=== PATIENT | female | born 1990 | race Caucasian/White ===

== ENCOUNTER 2017-09-26 22:30 | Emergency (ER) | payer MEDICAID, OTHER ==
[~2017-09-26] VITALS: Ht 160 cm; Wt 64.0 kg
[~2017-09-26 22:30] MED LIST: FLINT2 PO; OXYC-360 PO
[2017-09-26 23:06] VITALS: BP 119/61; PULSE 74; RESP 16; TEMP 97.7; O2SAT 100
--- NOTE | 2017-09-26 23:56 | PD ---
HPI Chief Complaint: Skin Problem Time Seen by Provider: 23:31 Travel History International Travel<30 days: No Contact w/Intl Traveler<30days: No Traveled to known affect area: No History of Present Illness HPI The patient is a 27 year old female who presents to the [facility] emergency department with a history of right wrist pain that she reports began approximately 1 week ago. Patient reports that at that time she went to the [place] emergency department for evaluation and treatment of nausea, vomiting, and diarrhea. She had IV access obtained in the right hand. The patient reports that the nausea medication was administered and she felt severe burning in her wrists. She reports that subsequent to that she did receive IV fluids and no swelling was noted. The patient reports that the next day she noticed that there was some increased pain radiating up the medial aspect of the wrist, however now she is also noting the pain along the dorsum of the wrist and ulnar side of the wrist. She reports that there is some mild swelling noted. She reports that there is some mild erythema. She went to the [facility] for follow-up of that emergency department visit earlier today. After being seen for this she was told to go the emergency department for evaluation and treatment. The patient reports that during her [place] emergency department visit she was diagnosed with a urinary tract infection. She is currently on ciprofloxacin and has 2 more days left on that prescription. She reports that the nausea, vomiting, and diarrhea have resolved. On review of systems otherwise, she denies having any known recent fevers, worsening cough or congestion (she reports having congestion, sore throat that is relatively chronic and thought to be related to allergies), neck pain, chest pain, shortness of breath, abdominal pain, vomiting, diarrhea, urinary symptoms, or neurologic symptoms. LMP: September 04, 2017 [facility] Past Medical History Narrative Medical The patient's past medical history is reportedly none Immunizations Current: Yes Tetanus Vaccination: Unknown Influenza Vaccination: Yes ?: Not LMP: 09/04/17 Past Surgical History Narrative Surgical The patient's past surgical history is reportedly none. Social History Alcohol Use: No Tobacco Use: Yes (1 cigarette over the last week if she is trying to quit) Substance Use: No Allergies-Medications (Allergen,Severity, Reaction): Coded Allergies: No Known Allergies (Unverified Adverse Reaction, Unknown, 3/31/18) Reported Meds & Prescriptions Reported Meds & Active Scripts Active Reported Percocet (Oxycodone/Acetaminophen) 5 Mg/325 Mg Tab 1 Tab PO Q4HPRN TAKE 1 TAB EVERY 4-6 HOURS, NEEDED, FOR SEVERE PAIN Flintstones Complete (Iron/Multivit/Minerals) 1 Tab Chew PO TID TAKE 3 TIMES/DAY WITH MEALS Review of Systems Except as stated in HPI: all other systems reviewed are Neg General / Constitutional: No: Fever Eyes: No: Visual changes HENT: Positive: Congestion, No: Headaches Cardiovascular: No: Chest Pain or Discomfort Respiratory: Positive: Cough, No: Shortness of Breath Gastrointestinal: No: Abdominal Pain Genitourinary: No: Dysuria Musculoskeletal: Positive: Edema, Pain Skin: No Rash Neurologic: No: Weakness, Focal Abnormalities, Change in Mentation, Slurred Speech, Sensory Disturbance Psychiatric: No: Depression Endocrine: No: Polydipsia Hematologic/Lymphatic: No: Easy Bruising Physical Exam Narrative General: The patient is a well-developed well-nourished female no acute distress. Head and Neck exam: Head is normocephalic atraumatic. Eyes: EOMI, pupils are equal round and reactive to light. Nose: Midline septum with pink mucous membranes Mouth: Dentition unremarkable. Moist mucus membranes. Posterior oropharynx is not erythematous. No tonsillar hypertrophy. Uvula midline. Airway patent. Neck: No palpable lymphadenopathy. No nuchal rigidity. No thyromegaly. Cardiovascular: Regular rate and rhythm without murmurs, gallops, or rubs. Lungs: Clear to auscultation bilaterally. No wheezes, rhonchi, or rales. Abdomen: Soft, without tenderness to palpation in all 4 quadrants of the abdomen. No guarding, rebound, or rigidity. Normal bowel sounds are audible. No tenderness on palpation of McBurney's point. Extremities: No clubbing, cyanosis, or edema, except in the area of interest, the right wrist. The patient has slight edema, pink coloration to the dorsal aspect of the right wrist with palpable firmness along the radial side of the wrist overlying the vein suspicious for an area of thrombosis. The patient reports having tenderness on the ulnar side as well, however no other area of firmness is palpated. No fluctuance. No rashes otherwise noted. No warmth to palpation. The patient reports having pain with flexion and extension of the right wrist. 2+ pulses in all 4 extremities. Back: No spinous process tenderness to palpation. No costovertebral angle tenderness to palpation. Neurologic Exam: Grossly nonfocal Skin Exam: No rash noted. Intact skin that is warm and dry. Data Data Last Documented VS Vital Signs Date Time Temp Pulse Resp B/P (MAP) Pulse Ox O2 Delivery O2 Flow Rate FiO2 09/26/17 23:06 97.7 74 16 119/61 (80) 100 Orders Orders Us Arm Venous Doppler (09/26/17 23:32) Complete Blood Count With Diff (09/26/17 23:47) Basic Metabolic Panel (Bmp) (09/26/17 23:47) C-Reactive Protein (Crp) (09/26/17 23:47) Ecg Monitoring (09/26/17 23:47) Oximetry (09/26/17 23:47) Labs Laboratory Tests Test 09/27/17 00:15 White Blood Count 8.5 TH/MM3 Red Blood Count 4.86 MIL/MM3 Hemoglobin 14.8 GM/DL Hematocrit 43.4 % Mean Corpuscular Volume 89.4 FL Mean Corpuscular Hemoglobin 30.6 PG Mean Corpuscular Hemoglobin Concent 34.2 % Red Cell Distribution Width 13.5 % Platelet Count 264 TH/MM3 Mean Platelet Volume 7.8 FL Neutrophils (%) (Auto) 61.4 % Lymphocytes (%) (Auto) 31.5 % Monocytes (%) (Auto) 5.2 % Eosinophils (%) (Auto) 1.3 % Basophils (%) (Auto) 0.6 % Neutrophils # (Auto) 5.2 TH/MM3 Lymphocytes # (Auto) 2.7 TH/MM3 Monocytes # (Auto) 0.4 TH/MM3 Eosinophils # (Auto) 0.1 TH/MM3 Basophils # (Auto) 0.1 TH/MM3 CBC Comment DIFF FINAL Differential Comment Blood Urea Nitrogen 15 MG/DL Creatinine 0.74 MG/DL Random Glucose 86 MG/DL Calcium Level 9.2 MG/DL Sodium Level 139 MEQ/L Potassium Level 4.0 MEQ/L Chloride Level 109 MEQ/L Carbon Dioxide Level 22.7 MEQ/L Anion Gap 7 MEQ/L Estimat Glomerular Filtration Rate 93 ML/MIN C-Reactive Protein LESS THAN 0.29 MG/DL MDM Medical Decision Making Medical Screen Exam Complete: Yes Emergency Medical Condition: Yes Medical Record Reviewed: Yes Differential Diagnosis Superficial thrombophlebitis, versus medication extravasation with inflammation , versus cellulitis, versus DVT Narrative Course During the course of the patient's emergency department visit, the patient's history, examination, and differential diagnosis were reviewed with the patient. The patient was placed on a teletypesetter monitor with oximetry and frequent blood pressure monitoring. The patient had blood work sent for analysis. An ultrasound of the right upper extremity ordered. The patient's laboratory studies were reviewed and remarkable for a CBC that is within normal limits, basic metabolic profile is remarkable for chloride of 109 , C-reactive protein less than 0.29 Radiology studies were reviewed and remarkable for an ultrasound of the right upper extremity that reveals an occlusive superficial thrombus in the right cephalic vein within the forearm, no DVT. It is recommended to the patient that she elevate her extremity, use warm or cool compresses for discomfort, and taken oral anti-inflammatory pain medication. The patient will be discharged home on Naprosyn. The patient was given her initial dose in the emergency department. The patient is resting comfortably and feels better, is alert and in no distress. The patient's results and examination findings were discussed with the patient. The repeat examination is unremarkable and benign. The history, exam, diagnostic testing, and current condition do not suggest any significant pathology to warrant further testing, continued ED treatment, admission, or surgical evaluation at this point. The vital signs have been stable. The patient does not have uncontrollable pain, intractable vomiting, or other significant symptoms. The patient's condition is stable and appropriate for discharge. The patient will pursue further outpatient evaluation with a primary care physician or other designated or consulting physician as indicated in the discharge instructions. The patient expressed understanding and was agreeable with this plan. Diagnosis Primary Impression: Thrombophlebitis arm Referrals: [facility] 1 week Patient Instructions: General Instructions, Superficial Thrombophlebitis (ED) Additional Instructions: It is recommended to the patient that she elevate her extremity, use warm or cool compresses for discomfort, and taken oral anti-inflammatory pain medication. Med/Other Pt SpecificInfo: Prescription(s) given Scripts Naproxen (EC-Naprosyn) 500 Mg Tabdr 500 MG PO BID Y for PAIN SCALE 1 TO 10, #14 TAB 0 Refills Prov: Medina Rachel MD 09/27/17 Disposition: 01 DISCHARGE HOME Condition: Stable Medina Rachel MD Sep 26, 2017 23:56
[2017-09-27 00:39] LABS: AUTOMATED NEUTROPHIL # 5.2 TH/MM3 (1.8-7.7); BASOPHIL # 0.1 TH/MM3 (0-0.2); BASOPHIL % 0.6 % (0.0-2.0); EOSINOPHIL # 0.1 TH/MM3 (0-0.4); EOSINOPHIL % 1.3 % (0.0-4.0); HEMATOCRIT 43.4 % (35.0-46.0); HEMOGLOBIN 14.8 GM/DL (11.6-15.3); LYMPH % 31.5 % (9.0-44.0); LYMPHOCYTE # 2.7 TH/MM3 (1.0-4.8); MEAN CELL VOLUME 89.4 FL (80.0-100.0); MEAN CORPUSCULAR HEMOGLOBIN 30.6 PG (27.0-34.0); MEAN CORPUSCULAR HGB CONC 34.2 % (32.0-36.0); MEAN PLATELET VOLUME 7.8 FL (7.0-11.0); MONO % 5.2 % (0.0-8.0); MONOCYTE # 0.4 TH/MM3 (0-0.9); NEUT % 61.4 % (16.0-70.0); PLATELET COUNT 264 TH/MM3 (150-450); RED BLOOD COUNT 4.86 MIL/MM3 (4.00-5.30); RED CELL DISTRIBUTION WIDTH 13.5 % (11.6-17.2); WHITE BLOOD COUNT 8.5 TH/MM3 (4.0-11.0)
[2017-09-27 00:55] LABS: BICARBONATE 22.7 MEQ/L (21.0-32.0); BLOOD UREA NITROGEN 15 MG/DL (7-18); CALCIUM 9.2 MG/DL (8.5-10.1); CHLORIDE 109 MEQ/L (98-107); CREATININE 0.74 MG/DL (0.50-1.00); GLOMERULAR FILTRATION RATE 93 ML/MIN (>89); GLUCOSE,RANDOM 86 MG/DL (74-106); SODIUM (NA) 139 MEQ/L (136-145)
[2017-09-27 01:03] LABS: C-REACTIVE PROTEIN LESS THAN 0.29 MG/DL (0.00-0.30)
--- NOTE | 2017-09-27 02:23 | RADRPT ---
EXAM DATE/TIME: 09/27/2017 01:46 [place] COMPARISON: No previous studies available for comparison. INDICATIONS : Right arm swelling. MEDICAL HISTORY : Tobacco use. Right arm swelling. SURGICAL HISTORY : None. ENCOUNTER: Initial ACUITY: 3 days PAIN SCORE: 6/10 LOCATION: Right arm. FINDINGS: There is no deep venous thrombosis in the internal jugular, subclavian, axillary, brachial veins. The re is occluded superficial thrombus in right cephalic vein from proximal to distal forearm. CONCLUSION: 1. Occlusive superficial thrombus in the right cephalic vein within the forearm. No deep venous throm bosis. Sj Rodriguez MD on September 27, 2017 at 2:19 Board Certified Radiologist. This report was verified electronically.
[2017-09-27] MEDS ORDERED: NAPR-810 PO (02:33)
[2017-09-27] MEDS ORDERED: NAPROXEN 500 MG TAB PO ONE (02:45)
== END 2017-09-27 03:14 | disposition home or self-care (01) ==
LOC: NEPC 22:30
DX: I82.611 Acute embolism and thrombosis of superficial veins of right upper extremity (principal); N39.0 Urinary tract infection, site not specified; F17.210 Nicotine dependence, cigarettes, uncomplicated
CPT/HCPCS: 80048; 85025; 86140; 93971